=== PATIENT | female | born 1975 | race American Indian/Alaskan Native ===

== ENCOUNTER 2017-08-13 21:49 | Observation (INO) | payer OTHER ==
[2017-08-13] MEDS ORDERED: ASPIRIN PO ONE (22:10)
[2017-08-13] MEDS ORDERED: TYLENOL ONE (22:29)
[2017-08-13] MEDS ORDERED: TYLENOL PO ONE (22:30)
[2017-08-13 23:17] LABS: Basophils % (Auto) 0.5 % (0.0-1.8); Eosinophils % (Auto) 0.6 % (0.0-4.3); Hematocrit 38.4 % (30.3-42.9); Hemoglobin 12.7 gm/dl (10.1-14.3); Lymphocytes # (Auto) 1.3 K/mm3 (1.2-5.4); Lymphocytes % (Auto) 20.5 % (13.4-35.0); Mean Corpuscular HGB Conc 33 % (30-34); Mean Corpuscular Hemoglobin 34 pg (28-32); Mean Corpuscular Volume 103 fl (79-97); Monocytes # (Auto) 0.3 K/mm3 (0.0-0.8); Monocytes % (Auto) 4.7 % (0.0-7.3); Platelet Count 284 K/mm3 (140-440); Red Blood Count 3.74 M/mm3 (3.65-5.03); Red Cell Distribution Width 12.9 % (13.2-15.2)
--- NOTE | 2017-08-13 23:23 | Emergency Department Report ---
ED Headache HPI - General Chief Complaint: Headache Stated Complaint: HEADACHE Time Seen by Provider: 08/13/17 23:17 Source: patient, family Exam Limitations: no limitations - History of Present Illness Initial Comments: Patient is a 41-year-old female that presents to emergency room complaining of a headache and migraine. Patient states is the worst headache of her life. Patient has a history of migraines for the past 6-7 months. Patient states the headache is worse with light and sound. Patient states the headache is better with rest. Patient states the headache is worse with movement. Patient states she does have a history of high blood pressure. Patient states she's had some chest pain intermittently over the last 2 days.. Patient denies shortness of breath. Patient denies diaphoresis and anxiety. Timing/Duration: constant, increasing Quality: severe, sharp, stabbing, throbbing Head Injury Location: global Recent Head Trauma: no recent headache/trauma Modifying Factors: improves with: exposure to light, medication, movement, rest Associated Symptoms: nausea/vomiting, vision changes. denies: confusion, fatigue, facial pain, fever/chills, flushing, loss of consciousness, nasal congestion, nasal drainage, numbness in legs/feet, rash, seizures, sinus infection, stiff neck, weakness Allergies/Adverse Reactions: Allergies No Known Allergies Allergy (Verified 08/13/17 22:32) Home Medications: Ambulatory Orders No Known Home Medications [No Reported Home Medications] 08/14/17 ED Review of Systems ROS: Stated complaint: HEADACHE Other details as noted in HPI Comment: All other systems reviewed and negative Constitutional: denies: chills, fever Eyes: vision change. denies: eye pain, eye discharge ENT: denies: ear pain, throat pain Respiratory: denies: cough, shortness of breath, wheezing Cardiovascular: chest pain. denies: palpitations Endocrine: no symptoms reported Gastrointestinal: nausea. denies: abdominal pain, diarrhea Genitourinary: denies: urgency, dysuria, discharge Musculoskeletal: denies: back pain, joint swelling, arthralgia Skin: denies: rash, lesions Neurological: as per HPI, headache. denies: weakness, paresthesias Psychiatric: denies: anxiety, depression Hematological/Lymphatic: denies: easy bleeding, easy bruising ED Past Medical Hx - Past Medical History Previous Medical History?: Yes Hx Headaches / Migraines: Yes - Surgical History Past Surgical History?: No - Family History Family history: hypertension - Social History Smoking Status: Never Smoker Substance Use Type: None - Medications Home Medications: Home Medications Medication Instructions Recorded Confirmed Last Taken Type No Known Home Medications [No 08/14/17 08/14/17 Unknown History Reported Home Medications] ED Physical Exam - General Limitations: No Limitations General appearance: alert, in no apparent distress - Head Head exam: Present: atraumatic, normocephalic - Eye Eye exam: Present: normal appearance - ENT ENT exam: Present: mucous membranes moist - Neck Neck exam: Present: normal inspection - Respiratory Respiratory exam: Present: normal lung sounds bilaterally. Absent: respiratory distress - Cardiovascular Cardiovascular Exam: Present: regular rate, normal rhythm. Absent: systolic murmur, diastolic murmur, rubs, gallop - GI/Abdominal GI/Abdominal exam: Present: soft, normal bowel sounds - Extremities Exam Extremities exam: Present: normal inspection - Back Exam Back exam: Present: normal inspection - Neurological Exam Neurological exam: Present: alert, oriented X3 - Psychiatric Psychiatric exam: Present: normal affect, normal mood - Skin Skin exam: Present: warm, dry, intact, normal color. Absent: rash ED Course Vital Signs 08/13/17 08/13/17 08/14/17 21:58 23:32 01:38 Temperature 98.9 F Pulse Rate 80 68 62 Respiratory 16 14 Rate Blood Pressure 201/101 Blood Pressure 138/75 163/87 [Left] O2 Sat by Pulse 98 99 100 Oximetry 08/14/17 03:37 Temperature Pulse Rate 81 Respiratory 14 Rate Blood Pressure 122/77 Blood Pressure 122/77 [Left] O2 Sat by Pulse 100 Oximetry - Reevaluation(s) Reevaluation #1: All results discussed with patient. Patient agrees with plan of care to admit patient to the hospital. Will consult hospitalist for admission.t. Hospitalist agreed to admit. 08/14/17 01:12 ED Medical Decision Making - Lab Data Result diagrams: 08/13/17 23:01 08/13/17 23:01 - EKG Data -: EKG Interpreted by De EKG shows normal: sinus rhythm, axis, QRS complexes, ST-T waves Rate: normal - EKG Data Interpretation: normal EKG - Radiology Data Radiology results: report reviewed - Medical Decision Making Patient is a 41-year-old female presents to emergency with chest pain and migraines. Patient will be admitted for further evaluation and treatment. - Differential Diagnosis chest pain, ACS. Migraines. Chest wall. High blood pressure. Critical care attestation.: If time is entered above; I have spent that time in minutes in the direct care of this critically ill patient, excluding procedure time. ED Disposition Clinical Impression: Chest pain, Headache, Migraine Disposition: OP ADMIT IP TO THIS HOSP Is pt being admited?: Yes Does the pt Need Aspirin: No Condition: Serious Time of Disposition: 01:36
[2017-08-13] MEDS ORDERED: BENADRYL IV ONE (23:31)
[2017-08-13] MEDS ORDERED: DILAUDID IV ONE (23:32)
[2017-08-13 23:37] LABS: Alanine Aminotransferase 9 units/L (7-56); Albumin 3.6 g/dL (3.9-5); BUN/Creatinine Ratio 11; Blood Urea Nitrogen 8 mg/dL (7-17); Calcium 8.8 mg/dL (8.4-10.2); Hemolysis Index 31
--- NOTE | 2017-08-14 00:03 | Cat Scan Report ---
FINAL REPORT PROCEDURE: CT HEAD/BRAIN WO CON TECHNIQUE: Computerized tomography of the head was performed without contrast material. HISTORY: PEDRO COMPARISON: No prior studies are available for comparison. FINDINGS: Skull and scalp: Normal. Paranasal sinuses: Normal. Ventricles and subarachnoid spaces: Normal. Cerebrum: No evidence of hemorrhage, acute infarction or mass . Cerebellum and brainstem: No evidence of hemorrhage, acute infarction or mass. Vasculature: Normal. Comments: None. IMPRESSION: Normal Examination
--- NOTE | 2017-08-14 02:00 | XRay Report ---
FINAL REPORT PROCEDURE: XR CHEST 1V AP TECHNIQUE: Chest radiograph anteroposterior view. CPT 82234 HISTORY: cp COMPARISON: No prior studies are available for comparison. FINDINGS: Heart: Normal. Mediastinum/Vessels: Normal. Lungs/Pleural space: Normal. Bony thorax: No acute osseous abnormality. Life support devices: None. IMPRESSION: No acute cardiopulmonary abnormality.
[2017-08-14] MEDS ORDERED: NORVASC PO ONE (02:09)
[2017-08-14] MEDS ORDERED: SODIUM CHLORIDE FLUSH SYRINGE 10 ML IV PRN (02:11)
[2017-08-14] MEDS ORDERED: DILAUDID IV PRN (02:11)
[2017-08-14] MEDS ORDERED: NITROSTAT SL PRN (02:11)
[2017-08-14] MEDS ORDERED: D5/0.45NS 1,000 ML IV SCH (03:00)
[2017-08-14 03:05] LABS: Chol/HDL Ratio 3.31 %
--- NOTE | 2017-08-14 03:20 | History and Physical Report ---
History of Present Illness Date of examination: 08/14/17 Date of admission: 08/14/2017 Chief complaint: HEADACHE, CHEST PAIN History of present illness: Ms Arroyo is a pleasant 41 y/o female with h/o Borderline HTN, not any medications presented to the hospital with c/o severe headache associated with N /V on Wednesday, also substernal CP. Pt was in her usual state of health up until Wednesday, when she started having headache, which she attributed to her Migraine headache, she took her Excedrin. Headache persistent and then associated with blurry vision. was present during the encounter ED Course On presentation to the ED, her BP was 201/101, she received IV pain and BP med CT head was negative, EKG and CE were also negative. She was then referred to the hospital medicine service for further inpt mgt Past History Past Medical History: hypertension Past Surgical History: No surgical history Social history: , other (1 daughter, and a grandchild) Family history: hypertension Medications and Allergies Allergies Allergy/AdvReac Type Severity Reaction Status Date / Time No Known Allergies Allergy Verified 08/13/17 22:32 Home Medications Medication Instructions Recorded Confirmed Last Taken Type No Known Home Medications [No 08/14/17 08/14/17 Unknown History Reported Home Medications] Active Meds: Active Medications Aspirin (Baby Aspirin) 81 mg PO QDAY JELLY Atorvastatin Calcium (Lipitor) 10 mg PO QHS JELLY Docusate Sodium (Colace) 100 mg PO BID JELLY Enoxaparin Sodium (Lovenox) 40 mg SUB-Q QDAY JELLY Hydromorphone HCl (Dilaudid) 0.25 mg IV Q5MIN PRN PRN Reason: Chest Pain Dextrose/Sodium Chloride (D5/0.45ns) 1,000 mls @ 100 mls/hr IV DIRECT JELLY Nitroglycerin (Nitrostat) 0.4 mg SL Q5M PRN PRN Reason: Chest Pain Sodium Chloride (Sodium Chloride Flush Syringe 10 Ml) 10 ml IV PRN PRN PRN Reason: LINE FLUSH Review of Systems Constitutional: weakness, chronic headaches Eyes: bilateral: blurred vision (resolve during the encounter) Ears, nose, mouth and throat: no ear discharge, no decreased hearing, no nose pain, no nasal congestion Breasts: no deferred, no change in shape, no swelling, no mass Cardiovascular: chest pain, lightheadedness, no palpitations, no rapid/ irregular heart beat, no edema Respiratory: no cough with sputum, no congestion, no wheezing, no pleurisy Gastrointestinal: nausea, vomiting, no abdominal pain, no diarrhea, no constipation, no change in bowel habits Genitourinary Female: no dysmenorrhea, no pelvic pain, no flank pain, no menorrhagia Menstruation: postmenopausal Rectal: no incontinence, no itching, no hemorrhoids Musculoskeletal: no neck stiffness, no shooting arm pain, no arm numbness/ tingling, no morning stiffness, no muscle weakness, no muscle cramps Integumentary: no rash, no pruritis, no redness, no sores Neurological: weakness, headaches, no paralysis, no migraines Psychiatric: no memory loss, no change in sleep habits, no suicidal ideation, no disorientation, no hallucinations Endocrine: no cold intolerance, no heat intolerance, no polyphagia, no excessive thirst Hematologic/Lymphatic: no easy bruising, no easy bleeding, no lymphadenopathy, no lymphedema Allergic/Immunologic: seasonal allergies, no urticaria, no allergic rhinitis, no persistent infections, no anaphylaxis Exam - Constitutional Vitals: Temp Pulse Resp BP Pulse Ox 98.9 F 62 14 163/87 100 08/13/17 21:58 08/14/17 01:38 08/14/17 01:38 08/14/17 01:38 08/14/17 01:38 General appearance: Present: no acute distress, well-nourished - EENT Eyes: Present: PERRL, EOM intact ENT: hearing intact, clear oral mucosa, dentition normal - Neck Neck: Present: supple, normal ROM - Respiratory Respiratory effort: normal Respiratory: bilateral: CTA, negative: diminished, rales, rhonchi - Cardiovascular Rhythm: regular Heart Sounds: Present: S1 & S2 - Extremities Extremities: no ischemia, pulses intact, pulses symmetrical, No edema, normal temperature, normal color Peripheral Pulses: within normal limits - Abdominal General gastrointestinal: Present: soft, non-tender, non-distended, normal bowel sounds Female genitourinary: Present: deferred - Rectal Rectal Exam: deferred - Integumentary Integumentary: Present: clear, warm, dry - Musculoskeletal Musculoskeletal: strength equal bilaterally - Psychiatric Psychiatric: appropriate mood/affect, intact judgment & insight - Neurologic Neurologic: CNII-XII intact - Allied Health Allied health notes reviewed: nursing Results - Labs CBC & Chem 7: 08/13/17 23:01 08/13/17 23: Labs: Laboratory Last Values WBC 6.1 K/mm3 (4.5-11.0) 08/13/17 23: RBC 3.74 M/mm3 (3.65-5.03) 08/13/17 23: Hgb 12.7 gm/dl (10.1-14.3) 08/13/17 23: Hct 38.4 % (30.3-42.9) 08/13/17 23: MCV 103 fl (79-97) H 08/13/17 23: MCH 34 pg (28-32) H 08/13/17: MCHC 33 % (30-34) 08/13/17 23: RDW 12.9 % (13.2-15.2) L 08/13/17: Plt Count 284 K/mm3 (140-440) 08/13/17 23: Lymph % (Auto) 20.5 % (13.4-35.0) 08/13/17 23: [place] % (Auto) 4.7 % (0.0-7.3) 08/13/17 23: Eos % (Auto) 0.6 % (0.0-4.3) 08/13/17 23: Baso % (Auto) 0.5 % (0.0-1.8) 08/13/17 23: Lymph # 1.3 K/mm3 (1.2-5.4) 08/13/17 23: [place] # 0.3 K/mm3 (0.0-0.8) 08/13/17 23: Eos # 0.0 K/mm3 (0.0-0.4) 08/13/17 23: Baso # 0.0 K/mm3 (0.0-0.1) 08/13/17 23: Seg Neutrophils % 73.7 % (40.0-70.0) H 08/13/17 23: Seg Neutrophils # 4.5 K/mm3 (1.8-7.7) 08/13/17 23: Sodium 139 mmol/L (137-145) 08/13/17 23:01 Potassium 3.6 mmol/L (3.6-5.0) 08/13/17 23:01 Chloride 101.2 mmol/L (98-107) 08/13/17 23:01 Carbon Dioxide 22 mmol/L (22-30) 08/13/17 23:01 Anion Gap 19 mmol/L 08/13/17 23:01 BUN 8 mg/dL (7-17) 08/13/17 23:01 Creatinine 0.7 mg/dL (0.7-1.2) 08/13/17 23:01 Estimated GFR > 60 ml/min 08/13/17 23:01 BUN/Creatinine Ratio 11 % 08/13/17 23:01 Glucose 145 mg/dL (65-100) H 08/13/17 23:01 Calcium 8.8 mg/dL (8.4-10.2) 08/13/17 23:01 Total Bilirubin 0.40 mg/dL (0.1-1.2) 08/13/17 23:01 AST 14 units/L (5-40) 08/13/17 23:01 ALT 9 units/L (7-56) 08/13/17 23:01 Alkaline Phosphatase 89 units/L (35-129) 08/13/17 23:01 Troponin T < 0.010 ng/mL (0.00-0.029) 08/14/17 01:31 Total Protein 7.1 g/dL (6.3-8.2) 08/13/17 23:01 Albumin 3.6 g/dL (3.9-5) L 08/13/17 23:01 Albumin/Globulin Ratio 1.0 % 08/13/17 23:01 Triglycerides 73 mg/dL (2-149) 08/14/17 02:36 Cholesterol 222 mg/dL (50-199) H 08/14/17 02:36 LDL Cholesterol Direct 156 mg/dL (50-130) H 08/14/17 02:36 HDL Cholesterol 67 mg/dL (40-59) H 08/14/17 02:36 Cholesterol/HDL Ratio 3.31 % 08/14/17 02:36 HCG, Qual Negative (Negative) 08/13/17 23:01 - Imaging and Cardiology EKG: report reviewed Chest x-ray: report reviewed CT Scan - head: report reviewed Assessment and Plan Assessment and plan: Assessment Chest pain, atypical Malignant HTN Acute on chronic migraine headaches N/V Mild Hyperglycemia Plan admit to the floor Amlodipine' slow IVF hydration 2D Echo s stress test Cardio eval Aspirin Lipitor HAb1c close monitoring d./w pt and by bedside, multiple questions were answered to the best of my ability Further pt mght per hospital course More than 35 mins spent of which more than 50% of the time was spent in pt counseling and coordination of care Advance Directives: No VTE prophylaxis?: Chemical Plan of care discussed with patient/family: Yes
[2017-08-14] MEDS ORDERED: LEXISCAN IV ONE (08:13)
[2017-08-14] MEDS ORDERED: LOVENOX SUB-Q SCH (10:00)
[2017-08-14] MEDS ORDERED: COLACE PO SCH (10:00)
--- NOTE | 2017-08-14 11:42 | Event Note ---
Date: 08/14/17 Preliminary Nuclear stress test results Stress test negative for stressed induced ischemia EF 74% low risk for significant ischemia
[2017-08-14 12:22] VITALS: BP 116/71
--- NOTE | 2017-08-14 13:44 | Discharge Summary ---
Providers - Providers Date of Admission: 08/14/17 01:35 Date of discharge: 08/14/17 Attending physician: NILDA MORRISON 08/14/17 Consult to Cardiac Rehabilitation [CONS] Routine Reason For Exam: Phase I Primary care physician: JACQUELINE CHENEY MD Hospitalization Condition: Fair Disposition: DC-01 TO HOME OR SELFCARE Exam - Constitutional Vitals: Temp Pulse Resp BP Pulse Ox 98.3 F 90 18 116/71 98 08/14/17 04:04 08/14/17 09:38 08/14/17 04:04 08/14/17 09:38 08/14/17 04:04 Plan Activity: advance as tolerated Diet: regular Additional Instructions: 1.Follow up with PCP in 1 week. Follow up with: JACQUELINE CHENEY MD [Primary Care Provider] - 3-5 Days Prescriptions: Butalb/Acetamin/Caff 50-325-40 [Fioricet] 1 tab PO Q6HR PRN #20 tab PRN Reason: Headache Ranitidine HCl [Heartburn Relief] 150 mg PO BID #60 tablet Simvastatin [Zocor TAB] 20 mg PO QHS #30 tablet
[2017-08-14] MEDS ORDERED: NON-FORMULARY (Ranitidine Hcl [Zantac 150 Mg Tab] 150 MG) PO SCH (13:45)
[2017-08-14] MEDS ORDERED: PEPCID PO SCH (14:00)
[2017-08-15] MEDS ORDERED: BABY ASPIRIN PO SCH (10:00)
--- NOTE | 2017-08-18 21:46 | Treadmill Report ---
THALLIUM STRESS TEST LEFT VENTRICLE: Left ventricular chamber size is within normal spread. Perfusion study demonstrates homogeneous uptake of the tracer in all segments, no significant perfusion defects identified. Gated analysis demonstrates normal left ventricular systolic function, ejection fraction of 74%. CONCLUSION: Normal myocardial perfusion study. JOB# [id number] CA/NTS
== END 2017-08-14 18:40 | disposition home or self-care (01) ==
LOC: ED 21:49 → 4A 08-14 01:35
PROVIDERS: ADMIT Family Medicine; ATTEND Internal Medicine
DX: R07.89 Other chest pain (principal); I10 Essential (primary) hypertension; G43.709 Chronic migraine without aura, not intractable, without status migrainosus; R73.9 Hyperglycemia, unspecified; Z82.49 Family history of ischemic heart disease and other diseases of the circulatory system
CPT/HCPCS: 36415; 70450; 71045; 78452; 80053; 80061; 83036; 84484; 84703; 85025; 93005; 93010; 93017; 96372; 96374; 96375; 96376; 99285; A9502; G0378; J1170; J1200; J1650; J2785; J2930